=== PATIENT | female | born 1965 | race Caucasian/White ===

== ENCOUNTER 2023-02-17 17:37 | Emergency (ER) | payer OTHER ==
[2023-02-17 17:42] VITALS: BP 124/77; PULSE 70; RESP 18; TEMP 98.3; BMI 28.1
[2023-02-17] MEDS ORDERED: ACETAMINOPHEN 500 MG TABLET (FP) PO ONE (18:10)
[2023-02-17] MEDS ORDERED: ACETAMINOPHEN 500 MG TABLET (FP) ONE (18:37)
== END 2023-02-17 19:42 | disposition home or self-care (01) ==
LOC: JERFT 17:37
DX: S69.92XA Unspecified injury of left wrist, hand and finger(s), initial encounter (principal); W01.0XXA Fall on same level from slipping, tripping and stumbling without subsequent striking against object, initial encounter
CPT/HCPCS: 73110-TC-LT-FY; 99283-25